=== PATIENT | female | born 1995 | race Caucasian/White ===

== ENCOUNTER 2017-04-08 11:22 | Emergency (ER) | payer MEDICAID ==
[2017-04-08 11:57] LABS: BASOPHILS 0.3 % (0-2); EOSINOPHILS 0.5 % (0-7); HEMATOCRIT 39.1 % (36.0-48.0); HEMOGLOBIN 12.7 g/dL (12-16); IMMATURE GRANULOCYTES 0.2 % (0-5); LYMPHOCYTES 28.7 % (15-50); MCH 28.4 pg (26.0-34.0); MCHC 32.5 g/dL (31.0-37.0); MCV 87.5 fL (80.0-100.0); MEAN PLATELET VOLUME 9.9 fL (7.4-10.4); MONOCYTES 5.8 % (2-11); NEUTROPHILS 64.5 % (40-80); PLATELET COUNT 191 10x3/uL (130-400); RBC 4.47 10x6/uL (4.00-5.40); RDW 12.9 % (11.5-14.5); WBC 6.5 10x3/uL (4.8-10.8)
[2017-04-08 12:10] LABS: ALKALINE PHOSPHATASE 91 U/L (46-116); ALT (SGPT) 22 U/L (10-68); APTT 26.2 SECONDS (22.8-39.4); BILIRUBIN - TOTAL 0.28 mg/dL (0.2-1.3); CALC OSMOLALITY 274 mosm/kg (275-300); CALCIUM 8.7 mg/dL (8.5-10.1); CARBON DIOXIDE 25.3 mmol/L (21.0-32.0); CHLORIDE - SERUM 106 mmol/L (98-107); CREATININE - SERUM 0.7 mg/dL (0.6-1.3); GLUCOSE 84 mg/dL (74-106); INR 1.05 (0.85-1.17); POTASSIUM - SERUM 3.7 mmol/L (3.5-5.1); PROTEIN - SERUM 7.2 g/dL (6.4-8.2); PROTIME 13.5 SECONDS (11.6-15.0); SODIUM 139 mmol/L (136-145); UREA NITROGEN 7 mg/dL (7-18); eGFR NON AFRICAN AMERICAN > 90 mL/min (90-120)
[2017-04-08 13:31] LABS: APPEARANCE HAZY (CLEAR); BILIRUBIN NEGATIVE (NEGATIVE); COLOR YELLOW (YELLOW); GLUCOSE NEGATIVE (NEGATIVE); KETONE NEGATIVE (NEGATIVE); LEUKOCYTE ESTERASE TRACE (NEGATIVE); NITRITE NEGATIVE (NEGATIVE); PROTEIN NEGATIVE (NEGATIVE); SPECIFIC GRAVITY 1.015 (1.005-1.020); UROBILINOGEN NORMAL (NORMAL)
[2017-04-08 13:32] LABS: RED CELLS - URINE OCC /hpf (0-5); WHITE CELLS - URINE 0-5 /hpf (0-5)
[2017-04-08 13:33] LABS: BACTERIA MODERATE /hpf (NONE SEEN)
== END 2017-04-08 15:30 | disposition home or self-care (01) ==
LOC: D.ER 11:22
PROVIDERS: Emergency Medicine
DX: R10.9 Unspecified abdominal pain (principal); K92.1 Melena; R82.71 Bacteriuria

== ENCOUNTER 2018-08-30 20:12 | Emergency (ER) | payer SELFPAY ==
[~2018-08-30] VITALS: Ht 172.7 cm; Wt 159.1 kg
[2018-08-30 20:18] VITALS: Ht 172.7 cm; Wt 159.1 kg
[2018-08-30 21:11] LABS: APPEARANCE CLEAR (CLEAR); BILIRUBIN NEGATIVE (NEGATIVE); COLOR YELLOW (YELLOW); GLUCOSE NEGATIVE (NEGATIVE); KETONE NEGATIVE (NEGATIVE); NITRITE NEGATIVE (NEGATIVE); PROTEIN NEGATIVE (NEGATIVE); UROBILINOGEN NORMAL (NORMAL)
[2018-08-30 21:12] LABS: UDS - AMPHET NEGATIVE QUAL (NEGATIVE); UDS - BARB NEGATIVE QUAL (NEGATIVE); UDS - BENZO NEGATIVE QUAL (NEGATIVE); UDS - COCAINE NEGATIVE QUAL (NEGATIVE); UDS - OPIATE NEGATIVE QUAL (NEGATIVE); UDS - PCP NEGATIVE QUAL (NEGATIVE); UDS - THC POSITIVE QUAL (NEGATIVE)
[2018-08-30 21:13] LABS: WHITE CELLS - URINE 0-5 /hpf (0-5)
[2018-08-30 21:14] LABS: BACTERIA MODERATE /hpf (NONE SEEN)
[2018-08-30 21:17] LABS: BASOPHILS 0.2 % (0-2); EOSINOPHILS 0.4 % (0-7); HEMATOCRIT 37.6 % (36.0-48.0); IMMATURE GRANULOCYTES 0.3 % (0-5); LYMPHOCYTES 21.9 % (15-50); MCHC 31.9 g/dL (31.0-37.0); MCV 87.6 fL (80.0-100.0); MEAN PLATELET VOLUME 10.6 fL (7.4-10.4); MONOCYTES 5.3 % (2-11); NEUTROPHILS 71.9 % (40-80); PLATELET COUNT 201 10x3/uL (130-400); RBC 4.29 10x6/uL (4.00-5.40); RDW 13.8 % (11.5-14.5); WBC 11.2 10x3/uL (4.8-10.8)
[2018-08-30 21:40] LABS: HCG SERUM POSITIVE (NEGATIVE)
[2018-08-30 23:40] VITALS: BP 133/71
== END 2018-08-30 23:38 | disposition home or self-care (01) ==
LOC: D.ER 20:12
PROVIDERS: Emergency Medicine; Family Medicine
DX: O20.9 Hemorrhage in early pregnancy, unspecified (principal); Z3A.00 Weeks of gestation of pregnancy not specified

== ENCOUNTER 2019-03-04 18:10 | Emergency (ER) | payer MEDICAID ==
[2018-08-30 20:18] VITALS: BMI 53.3
== END 2019-03-04 21:36 | disposition left against medical advice (07) ==
LOC: D.ER 18:10
DX: R58 Hemorrhage, not elsewhere classified (principal)

== ENCOUNTER 2019-03-15 21:11 | Emergency (ER) | payer MEDICAID ==
[2019-03-15 21:28] VITALS: BMI 53.3
[2019-03-15] MEDS ORDERED: FERROUS SULFAT325 MG PO (21:29)
[2019-03-15] MEDS ORDERED: FOLATE0.4 MG PO (21:29)
[2019-03-15] MEDS ORDERED: PRENAVITE1 TAB PO (21:29)
[2019-03-15 21:47] LABS: APPEARANCE CLEAR (CLEAR); BILIRUBIN NEGATIVE (NEGATIVE); COLOR YELLOW (YELLOW); GLUCOSE NEGATIVE (NEGATIVE); KETONE NEGATIVE (NEGATIVE); NITRITE NEGATIVE (NEGATIVE); PROTEIN NEGATIVE (NEGATIVE); UROBILINOGEN NORMAL (NORMAL)
[2019-03-15 21:48] LABS: BASOPHILS 0.3 % (0-2); EOSINOPHILS 0.9 % (0-7); HEMATOCRIT 39.7 % (36.0-48.0); HEMOGLOBIN 13.2 g/dL (12-16); IMMATURE GRANULOCYTES 0.2 % (0-5); LYMPHOCYTES 28.3 % (15-50); MCH 29.5 pg (26.0-34.0); MCHC 33.2 g/dL (31.0-37.0); MCV 88.6 fL (80.0-100.0); MEAN PLATELET VOLUME 10.2 fL (7.4-10.4); MONOCYTES 5.9 % (2-11); NEUTROPHILS 64.4 % (40-80); PLATELET COUNT 222 10x3/uL (130-400); RBC 4.48 10x6/uL (4.00-5.40); RDW 13.1 % (11.5-14.5); WBC 12.4 10x3/uL (4.8-10.8)
[2019-03-15 21:49] LABS: HCG URINE NEGATIVE (NEGATIVE)
[2019-03-15 21:59] LABS: ALBUMIN 3.3 g/dL (3.4-5.0); ALKALINE PHOSPHATASE 88 U/L (46-116); ALT (SGPT) 17 U/L (10-68); BILIRUBIN - TOTAL 0.18 mg/dL (0.2-1.3); CALC OSMOLALITY 278 mosm/kg (275-300); CALCIUM 8.7 mg/dL (8.5-10.1); CARBON DIOXIDE 23.7 mmol/L (21.0-32.0); CHLORIDE - SERUM 105 mmol/L (98-107); CREATININE - SERUM 0.8 mg/dL (0.6-1.3); GLUCOSE 109 mg/dL (74-106); POTASSIUM - SERUM 3.6 mmol/L (3.5-5.1); PROTEIN - SERUM 7.7 g/dL (6.4-8.2); SODIUM 139 mmol/L (136-145); UREA NITROGEN 12 mg/dL (7-18); eGFR NON AFRICAN AMERICAN > 90 mL/min (90-120)
[2019-03-16] MEDS ORDERED: TORADOL10 MG PO (01:49)
[2019-03-16 02:14] VITALS: BP 132/85
== END 2019-03-16 02:17 | disposition home or self-care (01) ==
LOC: D.ER 21:11
PROVIDERS: Emergency Medicine
DX: E28.2 Polycystic ovarian syndrome (principal); M54.5 Low back pain

== ENCOUNTER 2019-05-02 13:24 | Emergency (ER) | payer MEDICAID ==
[~2019-05-02] VITALS: Ht 172.7 cm; Wt 147.7 kg
[~2019-05-02 13:24] MED LIST: FERROUS SULFAT325 MG PO; FOLATE0.4 MG PO; PRENAVITE1 TAB PO; TORADOL10 MG PO
[2019-05-02 13:41] VITALS: Ht 172.7 cm; Wt 147.7 kg
[2019-05-02] MEDS ORDERED: TORADOL10 MG PO (16:47)
[2019-05-02 17:19] VITALS: BP 125/76
== END 2019-05-02 17:20 | disposition home or self-care (01) ==
LOC: D.ER 13:24
DX: M54.5 Low back pain (principal); V43.52XA Car driver injured in collision with other type car in traffic accident, initial encounter; Y93.89 Activity, other specified; Y92.410 Unspecified street and highway as the place of occurrence of the external cause